=== PATIENT | female | born 1990 | race African-American/Black ===

== ENCOUNTER 2016-08-04 19:25 | Emergency (ER) | payer OTHER ==
[~2016-08-04] VITALS: Ht 172.7 cm; Wt 70.3 kg
[2016-08-04 20:46] VITALS: BP 129/84
[2016-08-04 20:47] VITALS: BP 129/84
--- NOTE | 2016-08-06 01:20 | Emergency Room Report ---
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 With movement of her hand Allergies: Coded Allergies: No Known Allergies (Unverified , 08/04/16) Patient History Past Medical History: see triage record Pertinent Family History: none Last Menstrual Period: 05/09/16 Depo shot Now: No Reviewed Nursing Documentation: PMH: Agreed, PSxH: Agreed Nursing Documentation-PMH Past Medical History: No History, Except For Review of Systems All Other Systems: negative except mentioned in HPI Physical Exam Vital Signs Date Time Temp Pulse Resp B/P Pulse Ox O2 Delivery O2 Flow Rate FiO2 08/04/16 19:48 98.4 70 16 132/81 100 Room Air Sp02 EP Interpretation: reviewed, normal General Appearance: well appearing, no apparent distress Head: normocephalic, atraumatic Eyes: bilateral eye EOMI, bilateral eye PERRL ENT: hearing grossly normal, normal pharynx Musculoskeletal: other - On the right wrist distally patient does have a small , cyst, on the left hand, patient has increased discomfort with opening and extending her finger tips, otherwise able to flex and extend at the wrist, neurovascularly intact no signs of any edema or erythema Neurologic: alert, oriented x3, responsive, cooker sulfate III-XII nml as tested, motor strength/tone normal Skin: normal color, no rash Lymphatic: no adenopathy Procedures Splinting Splinting : Consent: Verbal Location: Left wrist Pre-Made Type: velcro Splint: volar Pre-Proc Neuro Vasc Exam: normal Post-Proc Neuro Vasc Exam: normal Patient Tolerated: Well Complications: None Medical Decision Making Diagnostic Impression: Primary Impression: wrist pain ER Course Given the patient's history and presentation there is consideration for repetitive use type pathology Including ligamental/muscle skeletal pathology I do not suspect any obvious bony fractures patient does not meet criteria for emergency imaging is stable for close outpatient followup Last Vital Signs Date Time Temp Pulse Resp B/P Pulse Ox O2 Delivery O2 Flow Rate FiO2 08/04/16 20:47 98.3 72 15 129/84 100 Room Air Status: improved Disposition: HOME, SELF-CARE Condition: Stable Referrals: NOT CHOSEN IPA/MD,REFERRING Patient Instructions: Wrist Splint, Wrist Pain, [id number] Additional Instructions: Patient is provided with the discharge instructions notified to follow up with primary doctor in the next 2-3 days otherwise return to the er with any worsening symptoms. Please note that this report is being documented using [employer] technology. This can lead to erroneous entry secondary to incorrect interpretation by the dictating instrument. MAYE GRIFFITH D.O. Aug 06, 2016 01:20
== END 2016-08-04 20:48 | disposition home or self-care (01) ==
LOC: EMR 20:01
DX: M25.532 Pain in left wrist (principal); L72.9 Follicular cyst of the skin and subcutaneous tissue, unspecified
CPT/HCPCS: 99282